=== PATIENT | female | born 1975 | race Caucasian/White ===

== ENCOUNTER → 2023-05-28 09:14 | Outpatient (REF) | payer OTHER, SELFPAY | LOC: RCS 09:14 | PROVIDERS: ATTENDING PHYSICIAN Student in an Organized Health Care Education/Training Program | DX: R07.89 Other chest pain (principal); R00.2 Palpitations; Z82.49 Family history of ischemic heart disease and other diseases of the circulatory system; R94.31 Abnormal electrocardiogram [ECG] [EKG]; Z00.8 Encounter for other general examination | CPT/HCPCS: 93017; 93005; 93225; 93226; 93350 ==

== ENCOUNTER 2023-06-04 06:49 | Day surgery (SDC) | payer OTHER, SELFPAY ==
[2023-06-04] VITALS (8 sets, daily range): BP systolic 96–112; BP diastolic 54–70; BMI 19.4
[2023-06-04] MEDS: LOW STRENGTH ASPIRIN 324 MG PO (07:25)
[2023-06-04] MEDS: NSS 179 ML IV (07:26)
[2023-06-04 07:36] LABS: Hematocrit 38.4 % (37.0-47.0); Hemoglobin 13.4 g/dL (12.0-16.0); Mean Corp Hgb Conc. 34.9 g/dL (33.0-37.0); Mean Corpuscular Hgb 31.9 pg (27.0-31.0); Mean Corpuscular Volume 91.4 fL (81.0-99.0); Mean Platelet Volume 10.2 fL (7.4-10.4); Platelet Count 236 10^3/uL (130-400); Red Cell Dist. Width 12.7 % (11.5-14.5); White Blood Cell Count 4.7 10^3/uL (4.8-10.8)
[2023-06-04 07:48] LABS: Blood Urea Nitrogen 12 mg/dl (7-17); Carbon Dioxide 25 mmol/L (22-30); Chloride 109 mmol/L (98-107); Estimated Creatinine Clearance 83 ml/min; Glucose 81 mg/dl (70-99); Potassium 4.1 mmol/L (3.5-5.1); Sodium 138 mmol/L (135-145); eGFR > 60.00
[2023-06-04 07:57] LABS: HCG, Urine Qualitative Screen Negative
--- NOTE | 2023-06-04 09:15 | ITS.CL.CATH ---
Guest Experience Specialist - Catheterization
Cardiac Catheterization
Procedure Report:
LEFT HEART CATHETERIZATION
Date of Procedure: June 04, 2023
Referring: Dr. Ernie Tidwell
PROCEDURES:
1. Left heart catheterization with coronary and single-plane left ventriculography
INDICATION: Chest pain, shortness of breath, mildly abnormal stress echocardiogram
ACCESS: Right radial artery, 5 Malay sheath
HEMODYNAMICS : (mmHg)
AO (s/d) : 109/67
LV (s/d) : 108/11
LVEDP : 19
CORONARY FINDINGS
DOMINANCE: Right
LEFT MAIN: Normal
LEFT ANTERIOR DESCENDING: Normal
CIRCUMFLEX: Normal
RIGHT CORONARY ARTERY: Normal
VENTRICULOGRAPHY: Normal LVEF
RADIATION SUMMARY: Fluoro Time (min): 4.3, Dose (mGy): 78.2, DAP (Gy.cm2) : 7.7
Closure Device: TR band
CONCLUSIONS
1. Normal coronary artery
2. Preserved left ventricular function
Copy to: Dr. Ernie Tidwell
== END 2023-06-04 12:40 | disposition home or self-care (01) ==
LOC: CATH 06:49
PROVIDERS: ATTENDING PHYSICIAN Internal Medicine Interventional Cardiology; FAMILY PHYSICIAN Student in an Organized Health Care Education/Training Program; OTHER PHYSICIAN Surgery
DX: R06.02 Shortness of breath (principal); R07.9 Chest pain, unspecified
CPT/HCPCS: 80048; 81025; 85027; 93458; C1894; Q9967

== ENCOUNTER → 2023-07-30 12:59 | Outpatient (REF) | payer OTHER, SELFPAY | LOC: DHCBS MAIN 12:59 | PROVIDERS: ATTENDING PHYSICIAN Internal Medicine Cardiovascular Disease; FAMILY PHYSICIAN Student in an Organized Health Care Education/Training Program | DX: R07.89 Other chest pain (principal) | CPT/HCPCS: 93306 ==

== ENCOUNTER → 2023-08-31 08:55 | Outpatient (REF) | payer OTHER, SELFPAY | LOC: RSP 08:55 | PROVIDERS: ATTENDING PHYSICIAN Student in an Organized Health Care Education/Training Program | DX: R06.09 Other forms of dyspnea (principal) | CPT/HCPCS: 94727; 94729; 71046; 88738; 94010 ==

== ENCOUNTER → 2024-12-01 09:54 | Outpatient (REF) | payer OTHER, SELFPAY | LOC: HWRAD 09:54 | PROVIDERS: ATTENDING PHYSICIAN Student in an Organized Health Care Education/Training Program | DX: R10.32 Left lower quadrant pain (principal) | CPT/HCPCS: 76830; 76856 ==